=== PATIENT | female | born 1965 | race Caucasian/White ===

== ENCOUNTER 2024-10-26 06:29 | Inpatient (IN) | payer MEDICARE, OTHER ==
[~2024-10-26] VITALS: Ht 170.2 cm; Wt 68.9 kg
[2024-10-26] MEDS ORDERED: dexaMETHasone SOD PHOSPHATE 2 ML ONE (07:03)
[2024-10-26] MEDS ORDERED: ANESTHESIA TRAY IN PYXIS 1 EA TRAY MC ONE (07:03)
[2024-10-26] MEDS ORDERED: OXYMETAZOLINE HCL NASAL SPRAY 30 ML BOTTLE NS ONE (07:03)
[2024-10-26] MEDS ORDERED: LIDOCAINE 2%-EPI 1:100,000 30 ML VIAL ONE (07:04)
[2024-10-26] MEDS ORDERED: VANCOMYCIN 1 GM VIAL ONE (07:04)
[2024-10-26] MEDS ORDERED: ROCURONIUM BROMIDE 50 MG/5 ML ONE (07:21)
[2024-10-26] MEDS ORDERED: FENTANYL PF 250MCG/5ML AMPUL ONE (07:21)
[2024-10-26] MEDS ORDERED: LABETALOL 20 MG/4 ML VIAL ONE (08:08)
[2024-10-26] MEDS ORDERED: FENTANYL PF 100MCG/2ML AMPUL ONE (10:38)
[2024-10-26] MEDS ORDERED: IV NS 0.9% 1,000 ML IV PRN (11:30)
[2024-10-26] MEDS ORDERED: ONDANSETRON HCL/PF 4 MG/2 ML VIAL IV PRN (12:30)
[2024-10-26] MEDS: HYDROMORPHONE 1 MG/1 ML DISP.SYRIN IV PRN (13:01)
[2024-10-26] MEDS ORDERED: ABEM100T PO (13:25)
[2024-10-26] MEDS ORDERED: LETR2.5T8 PO (13:25)
[2024-10-26 16:00] VITALS: BP 121/75; TEMP 98.2; O2SAT 98
[2024-10-26] MEDS: VANCOMYCIN 1 GM in IV D5W 250ml IV SCH (18:16)
[2024-10-26 22:08] VITALS: BP 130/73; TEMP 98.6; O2SAT 99
[2024-10-27] MEDS: ACETAMINOPHEN 325 MG TABLET PO PRN (07:37)
[2024-10-27 08:37] VITALS: BP 124/69; TEMP 98.4; O2SAT 99
[2024-10-27 10:42] LABS: CHOLESTEROL 197 mg/dL (<200); HDL CHOLESTEROL 71 mg/dL (40-60); LDL 102 mg/dL (0-99); TRIGLYCERIDES 71 mg/dL (30-150)
== END 2024-10-27 12:40 | disposition home or self-care (01) | DRG 142 ==
LOC: DS 06:29 → MED 11:11
PROC: 0NST04Z Reposition Right Mandible with Internal Fixation Device, Open Approach (ICD-10-PCS; 2024-10-26)
PROC: 0NSR04Z Reposition Maxilla with Internal Fixation Device, Open Approach (ICD-10-PCS; 2024-10-26)
PROC: 0NUV07Z Supplement Left Mandible with Autologous Tissue Substitute, Open Approach (ICD-10-PCS; 2024-10-26)
PROC: 0NUR07Z Supplement Maxilla with Autologous Tissue Substitute, Open Approach (ICD-10-PCS; 2024-10-26)
PROC: 0NUT07Z Supplement Right Mandible with Autologous Tissue Substitute, Open Approach (ICD-10-PCS; 2024-10-26)
PROC: 0NSR0ZZ Reposition Maxilla, Open Approach (ICD-10-PCS; 2024-10-26)
PROC: 0N5V0ZZ Destruction of Left Mandible, Open Approach (ICD-10-PCS; 2024-10-26)
PROC: 0N5T0ZZ Destruction of Right Mandible, Open Approach (ICD-10-PCS; 2024-10-26)
PROC: 0WB30ZX Excision of Oral Cavity and Throat, Open Approach, Diagnostic (ICD-10-PCS; 2024-10-26)
PROC: 0NSV04Z Reposition Left Mandible with Internal Fixation Device, Open Approach (ICD-10-PCS; principal; 2024-10-26 07:30)
DX: S02.40DA Maxillary fracture, left side, initial encounter for closed fracture (principal); M27.2 Inflammatory conditions of jaws; S02.40CA Maxillary fracture, right side, initial encounter for closed fracture; S02.609A Fracture of mandible, unspecified, initial encounter for closed fracture; D16.4 Benign neoplasm of bones of skull and face; Z85.3 Personal history of malignant neoplasm of breast; M27.40 Unspecified cyst of jaw; X58.XXXA Exposure to other specified factors, initial encounter; Y92.9 Unspecified place or not applicable; S02.609B Fracture of mandible, unspecified, initial encounter for open fracture; J32.9 Chronic sinusitis, unspecified
CPT/HCPCS: 36415; 80061-TC; 87081-TC; 88305-TC; 88311-TC; A4223; A4338; C1713; G0378; J0360; J0690; J1100; J1171; J2704; J3010; J3370; J3490; J7030; J7050; J7060

== ENCOUNTER 2025-04-06 09:13 | Inpatient (IN) | payer MEDICARE, OTHER ==
[~2025-04-06] VITALS: Ht 170.2 cm; Wt 78.1 kg
[~2025-04-06 09:13] MED LIST: ABEM100T PO; LETR2.5T8 PO
[2025-04-06] MEDS ORDERED: FENTANYL PF 250MCG/5ML AMPUL ONE (10:59)
[2025-04-06] MEDS ORDERED: ROCURONIUM BROMIDE 50 MG/5 ML ONE (10:59)
[2025-04-06] MEDS ORDERED: LIDOCAINE 2%-EPI 1:100,000 30 ML VIAL ONE (11:21)
[2025-04-06] MEDS ORDERED: dexaMETHasone SOD PHOSPHATE 1 ML ONE ×2 (11:21→11:22)
[2025-04-06] MEDS ORDERED: VANCOMYCIN 1 GM VIAL ONE (11:21)
[2025-04-06 13:05] VITALS: BP 127/69; TEMP 97.8; O2SAT 97
[2025-04-06 13:20] VITALS: BP 124/66; TEMP 97.9; O2SAT 98
[2025-04-06 13:35] VITALS: BP 126/70; TEMP 97.8; O2SAT 97
[2025-04-06] MEDS ORDERED: MAGNESIUM HYDROXIDE 30 ML UDC PO PRN (14:00)
[2025-04-06] MEDS ORDERED: ONDANSETRON HCL/PF 4 MG/2 ML VIAL IVP PRN ×2 (14:00)
[2025-04-06] MEDS ORDERED: MAG HYDROX/AL HYDROX/SIMETH 30 ML UDC PO PRN (14:00)
[2025-04-06] MEDS ORDERED: HYDROMORPHONE 1 MG/1 ML DISP.SYRIN IV PRN (14:00)
[2025-04-06] MEDS ORDERED: ACETAMINOPHEN 325 MG TABLET PO PRN ×2 (14:00)
[2025-04-06] MEDS ORDERED: TRAMADOL HCL 50 MG TABLET PO PRN (15:00)
[2025-04-06] MEDS: IV NS 0.9% 1,000 ML IV PRN (15:24)
[2025-04-06 16:00] VITALS: BP 112/74; TEMP 97.5; O2SAT 96
[2025-04-06 20:00] VITALS: BP 114/72; TEMP 97.7; O2SAT 98
[2025-04-06] MEDS: VANCOMYCIN 1 GM in IV D5W 250ml IV SCH (21:05)
[2025-04-07 07:01] LABS: PLATELET COUNT (AUTO) 276 K/uL (150-450); RED BLOOD CELL COUNT(AUTO) 4.28 MIL/uL (4.0-5.2); RED CELL DISTRIBUTION WIDTH 14.7 % (11.5-15.0); WHITE BLOOD COUNT (AUTO) 7.4 K/uL (4.3-11.0)
[2025-04-07] MEDS: PANTOPRAZOLE 40 MG TABLET.DR PO SCH (07:29)
[2025-04-07 07:34] LABS: CALCIUM, SERUM 9.3 mg/dL (8.5-10.1); CREATININE 0.7 mg/dL (0.6-1.3); PHOSPHORUS 3.8 mg/dL (2.5-4.9); SODIUM SERUM 145.0 mmol/L (136-145); UREA NITROGEN, BLOOD 11.0 mg/dL (7-18)
[2025-04-07 08:00] VITALS: BP 143/83; TEMP 97.7; O2SAT 99
== END 2025-04-07 13:59 | disposition home or self-care (01) | DRG 497 ==
LOC: DS 09:13 → MED 13:24
PROVIDERS: ADMIT Nurse Practitioner Family; ATTEND Nurse Practitioner Family
PROC: 0NBR0ZZ Excision of Maxilla, Open Approach (ICD-10-PCS; 2025-04-06)
PROC: 0WB30ZZ Excision of Oral Cavity and Throat, Open Approach (ICD-10-PCS; 2025-04-06)
PROC: 0NBV0ZX Excision of Left Mandible, Open Approach, Diagnostic (ICD-10-PCS; 2025-04-06)
PROC: 0NBT0ZX Excision of Right Mandible, Open Approach, Diagnostic (ICD-10-PCS; 2025-04-06)
PROC: 0NPW04Z Removal of Internal Fixation Device from Facial Bone, Open Approach (ICD-10-PCS; principal; 2025-04-06 13:20)
DX: T84.69XA Infection and inflammatory reaction due to internal fixation device of other site, initial encounter (principal); D16.5 Benign neoplasm of lower jaw bone; E66.9 Obesity, unspecified; Y83.8 Other surgical procedures as the cause of abnormal reaction of the patient, or of later complication, without mention of misadventure at the time of the procedure; Y92.009 Unspecified place in unspecified non-institutional (private) residence as the place of occurrence of the external cause; Z85.3 Personal history of malignant neoplasm of breast; Z68.27 Body mass index [BMI] 27.0-27.9, adult; M27.2 Inflammatory conditions of jaws; M89.38 Hypertrophy of bone, other site
CPT/HCPCS: 36415; 80048-TC; 83735-TC; 84100-TC; 85025-TC; 87081-TC; 88300-TC; 88305-TC; 88311-TC; A4217; A4223; A4338; G0378; J0360; J0461; J0690; J1100; J2704; J3010; J3373; J3490; J7030; J7060